=== PATIENT | female | born 1995 | race Caucasian/White ===

== ENCOUNTER 2020-04-05 09:41 | Outpatient (CLI) | payer BC, OTHER, SELFPAY ==
--- NOTE | ~2020-04-05 | US_ITS ---
EXAMINATION: US soft tissue abdomen DATE: 04/05/2020 10:25 INDICATION: Right lateral abdominal lump. TECHNIQUE: Multiple grayscale and Doppler ultrasound images of the abdomen were obtained. COMPARISON: None FINDINGS: There is no abnormal mass in the patient's area of concern at the junction of a right rib w ith the costal cartilage. IMPRESSION: 1. No abnormal mass in the patient's area concern. Reviewed, dictated and finalized at location A.
== END 2020-04-05 09:42 | disposition home or self-care (01) ==
PROVIDERS: PCP Emergency Medicine; Visit Provider Emergency Medicine
DX: R19.00 Intra-abdominal and pelvic swelling, mass and lump, unspecified site (principal)
CPT/HCPCS: 76705